=== PATIENT | female | born 1995 | race Two or more races ===

== ENCOUNTER 2024-10-31 01:06 | Emergency (ER) | payer OTHER ==
[~2024-10-31] VITALS: Ht 162.6 cm; Wt 88.0 kg
[2024-10-31] MEDS ORDERED: PRENATA CHEWAB1 EACH PO (01:43)
[2024-10-31] MEDS ORDERED: 0.9 % SODIUM CHLORIDE 1,000 ML IV STA (02:20)
[2024-10-31] MEDS ORDERED: ACETAMINOPHEN 500 MG GEL..CAP PO ONE (02:41)
[2024-10-31 03:00] LABS: BASO % 0.2 % (0.1-1.2); EOS # 0.17 (0.04-0.54); EOS % 1.9 % (0.7-7.0); HEMATOCRIT 31.9 % (34.1-44.9); HEMOGLOBIN 10.7 g/dL (11.2-15.7); LYMPH % 16.7 % (19.3-53.1); MONO # 0.66 (0.24-0.82); MONO % 7.4 % (4.7-12.5); NEUT # 6.52 (1.56-6.13); NEUT % 72.7 % (34.0-71.1); PLATELET COUNT 228 K/uL (163-369); RED BLOOD COUNT 3.45 M/uL (3.93-5.22); RED CELL DISTRIBUTION WIDTH 13.1 % (11.6-14.4)
[2024-10-31 03:20] LABS: PH,URINE 6.5 (5.0-8.0); URINE APPEARANCE Clear; URINE BILIRRUBIN Negative (NEGATIVE); URINE BLOOD Negative; URINE COLOR Yellow; URINE KETONE Trace (NEGATIVE); URINE LEUKOCYTE Trace; URINE NITRATE Negative; URINE PROTEIN Negative (NEGATIVE)
[2024-10-31 03:23] LABS: URINE BACTERIA 4109.8 uL (0.0-1933); URINE EPITHELIAL CELLS 76.4 uL (0.0-38.8); URINE RBC 4.7 uL (0.0-20.8); URINE WBC 31.3 uL (0.0-23.2)
[2024-10-31 03:23] LABS: INR 0.96; PARTIAL THROMBOPLASTIN TIME 24.3 SECONDS (22.0-34.0); PROTHROMBIN TIME 10.5 SECONDS (9.0-11.5)
[2024-10-31 03:24] LABS: URINE GLUCOSE 100 MG/DL (NEGATIVE)
[2024-10-31 03:30] LABS: ALBUMIN 3.1 gm/dL (3.4-5.0); ALKALINE PHOSPHATASE 76 U/L (50-136); ALT/SGPT 58 U/L (12-78); ANION GAP 11 (10.0-20.0); AST/SGOT 23 U/L (15-37); BLOOD UREA NITROGEN 9 mg/dL (7-18); BUN CREA RATIO 18 (7.0-25.0); CALCIUM 8.8 mg/dL (8.5-10.1); CARBON DIOXIDE 24 mEq/L (21-32); CHLORIDE 111 mmol/L (98-107); CREATININE SERUM 0.49 mg/dL (0.55-1.02); GFR 149.31; GLOBULINA 3.6 G/DL (2.4-3.5); GLUCOSE FASTING 91 mg/dL (65-100); OSMOLALITY SERUM 281 MOSM/KG (275-295); POTASSIUM 3.95 mEq/L (3.5-5.1); SODIUM 142 mmol/L (136-145); TOTAL PROTEIN 6.7 gm/dL (6.4-8.2)
[2024-10-31 03:51] LABS: BILIRUBIN TOTAL < 0.10 mg/dL (0.3-1.2); COVID-19 AG NEGATIVE (NEGATIVE); INFLUENZA A AG NEGATIVE (NEGATIVE)
[2024-10-31 04:28] LABS: HCG QUANTITATIVE 5284 mUI/mL (1-3)
== END 2024-10-31 07:12 | disposition home or self-care (01) ==
LOC: ER 02:26
DX: Z34.90 Encounter for supervision of normal pregnancy, unspecified, unspecified trimester (principal); I95.9 Hypotension, unspecified; Z20.822 Contact with and (suspected) exposure to COVID-19

== ENCOUNTER 2024-11-30 15:24 | Outpatient (CLI) | payer OTHER ==
[~2024-11-30] VITALS: Ht 162.6 cm; Wt 88.9 kg
[~2024-11-30 15:24] MED LIST: PRENATA CHEWAB1 EACH PO
[2024-11-30 15:38] VITALS: BP 125/78
[2024-11-30] MEDS ORDERED: RINGERS SOLUTION,LACTATED 1,000 ML IV SCH (16:30)
[2024-11-30 16:59] LABS: BASO % 0.2 % (0.1-1.2); EOS # 0.17 (0.04-0.54); EOS % 1.7 % (0.7-7.0); HEMATOCRIT 30.7 % (34.1-44.9); LYMPH % 14.2 % (19.3-53.1); MEAN CORPUSCULAR HEMOGLOBIN 31.3 pg (25.6-32.2); MONO # 0.74 (0.24-0.82); MONO % 7.5 % (4.7-12.5); NEUT # 7.36 (1.56-6.13); NEUT % 74.8 % (34.0-71.1); PLATELET COUNT 225 K/uL (163-369); RED BLOOD COUNT 3.26 M/uL (3.93-5.22); RED CELL DISTRIBUTION WIDTH 13.1 % (11.6-14.4)
[2024-11-30 17:00] LABS: URINE APPEARANCE Clear; URINE BILIRRUBIN Negative (NEGATIVE); URINE BLOOD Large; URINE COLOR Yellow; URINE GLUCOSE Negative (NEGATIVE); URINE KETONE Negative (NEGATIVE); URINE LEUKOCYTE Negative; URINE NITRATE Negative; URINE PROTEIN Trace (NEGATIVE); URINE UROBILINOGEN 0.2 E.U./dl
[2024-11-30 17:04] LABS: HEMOGLOBIN 10.2 g/dL (11.2-15.7); URINE BACTERIA 523.7 uL (0.0-1933); URINE EPITHELIAL CELLS 33.7 uL (0.0-38.8); URINE RBC 688.6 uL (0.0-20.8); URINE WBC 12.5 uL (0.0-23.2)
[2024-11-30 17:15] LABS: URINE CAST 0.58 uL (0.0-1.40)
[2024-11-30 20:18] VITALS: BP 91/55
[2024-11-30 23:29] VITALS: BP 92/55
[2024-12-01 03:08] VITALS: BP 93/59
[2024-12-01 06:26] VITALS: BP 89/59; O2SAT 99
[2024-12-01 11:53] VITALS: BP 90/65; O2SAT 99
[2024-12-01 15:15] VITALS: BP 92/59
[2024-12-01 16:56] VITALS: BP 92/60
== END 2024-12-01 16:56 | disposition home or self-care (01) ==
LOC: OBS/DEL 15:24
PROVIDERS: Obstetrics & Gynecology; ATTEND Specialist
DX: O26.892 Other specified pregnancy related conditions, second trimester (principal); R10.2 Pelvic and perineal pain; Z3A.26 26 weeks gestation of pregnancy